=== PATIENT | male | born 1995 | race Hispanic/Latino ===

== ENCOUNTER 2019-05-07 11:05 | Emergency (ER) | payer OTHER ==
[~2019-05-07] VITALS: Ht 177.8 cm; Wt 88.5 kg
[2019-05-07] MEDS ORDERED: ALBUTEROL 90 MCG/ACT 8GM HFA INHALER INH ONE (11:45)
--- NOTE | 2019-05-07 12:14 | REP ---
Clinical: Left knee pain Technique: AP, lateral, bilateral oblique and sunrise views left knee . Findings: The osseous structures and joint spaces are intact and normal. There is no evidence for acute fracture or dislocation. No joint effusion is appreciated. Surrounding soft tissues are unremarkable. No subcutaneous emphysema or radiodense foreign body. Impression: Normal examination. No acute fracture or dislocation. Electronically Signed by Maurisio Donald MD 05/07/2019 12:05 P
--- NOTE | 2019-05-07 12:28 | REP ---
Clinical: Coughing and wheezing . Comparison: None . Findings: The mediastinum and cardiac silhouette are stable and within normal limits for portable technique. The lung tapia are clear without acute consolidation, effusion, or pneumothorax. Skeletal structures are intact. Impression: No focal consolidation or effusion. Electronically Signed by Maurisio Donald MD 05/07/2019 12:20 P
[2019-05-07] MEDS ORDERED: PROAAER10 INH (13:29)
[2019-05-07 13:51] VITALS: BP 134/57
== END 2019-05-07 13:58 | disposition home or self-care (01) ==
LOC: M ED 11:05
DX: M94.262 Chondromalacia, left knee (principal); J06.9 Acute upper respiratory infection, unspecified; Z20.89 Contact with and (suspected) exposure to other communicable diseases; J45.909 Unspecified asthma, uncomplicated
CPT/HCPCS: 71045; 73564; 87486; 87581; 87633; 87798; 87880; 99284; U0002